=== PATIENT | female | born 1980 | race Caucasian/White ===

== ENCOUNTER 2023-06-30 09:59 | Emergency (ER) | payer OTHER, SELFPAY ==
--- NOTE | ~2023-06-30 | CT_ITS ---
EXAMINATION: CT abdomen pelvis w con DATE: 06/30/2023 15:27 INDICATION: Epigastric abdominal pain for 2 months. Nausea, vomiting, diarrhea TECHNIQUE: Computed tomography (CT) of the abdomen and pelvis was performed with 100 CC Omnipaque 350 intravenous contrast. Automated exposure control and iterative reconstruction technique were employe d. Exam dose: 270.69 mGy-cm total exam DLP. COMPARISON: None. FINDINGS: The lung bases are clear. Normal heart size. No pericardial or pleural effusion. Status post cholecystectomy. The liver, spleen, pancreas, and adrenal glands and kidneys are unremark able other than 13 mm left renal cyst. No bile duct or pancreatic duct dilatation. No urinary tract calculus or hydroureteronephrosis. Normal caliber of the abdominal aorta. No intraperitoneal or retroperitoneal or pelvic mass lesion or adenopathy or ascites. Retroverted uterus with IUD. There are nondilated fluid containing small bowel segments as well as some liquid stool is an air-flu id levels of the right colon suggesting enterocolitis. No bowel wall thickening, bowel obstruction, p neumoperitoneum or portal venous gas. Small fat-containing umbilical hernia. No suspicious osteolytic or osteoblastic lesions. IMPRESSION: Fluid containing small bowel segments as well as some liquid stool in colon air-fluid le vels, suggesting enterocolitis Status post cholecystectomy Retroverted uterus with IUD Reviewed, dictated and finalized at [facility]. Reviewed, dictated and finalized at [facility]. RECORDIST IMPRESSION: Fluid containing small bowel segments as well as some liquid stool in colon air-fluid levels, suggesting enterocolitis Status post cholecystectomy Retroverted uterus with IUD
[2023-06-30 10:09] VITALS: BP 129/70; PULSE 90; RESP 16; TEMP 36.4; O2SAT 100
--- NOTE | 2023-06-30 12:50 | ED.ABDPAIN ---
HPI - Abdominal Pain General Chief Complaint: Abdominal Pain <EZE Martines Last Filed: 06/30/23 12:57> Stated Complaint: abd pain <EZE Martines Last Filed: 06/30/23 12:57> Time Seen by Provider: 06/30/23 12:50 <EZE Martines Last Filed: 06/30/23 12:57> Focused HPI: Patient is a 43 y/o female who presents to the ED with c/o epigastric abdominal pain. Patient reports having intermittent pain in her epigastric region/upper abdomen for the past 2 months. Reports intermittent episodes of more severe pain, last occurring this morning. States at times, aggravated with eating/drinking, notes she ate fatty foods yesterday. Has not taken anything for the pain today. Has tried warm baths, gas-x, Imodium, yoga w/o improvement. Does not feel like acid reflux, takes omeprazole daily. Reports intermittent nausea, vomiting, diarrhea. States her stools often look yellow and greasy. Denies rectal bleeding, melena. Denies fevers. Denies urinary complaints. Denies Hx of IBD. GENERAL: Well-appearing, well-nourished, and in no acute distress. HEAD: Normocephalic, atraumatic. CHEST: Clear to auscultation. ?No respiratory distress. HEART: Regular rate and rhythm.? ABD: Mild TTP in epigastric region, no rebound NEURO: ?Alert and oriented x3. Patient screened in triage and initial orders placed.? ?Additional care and disposition to be based upon?diagnostic testing and treatment. <EZE Martines Last Filed: 06/30/23 12:57> Source: patient <EZE Martines Last Filed: 06/30/23 12:57> Mode of arrival: ambulatory <EZE Martines Last Filed: 06/30/23 12:57> Limitations: no limitations <EZE Martines Last Filed: 06/30/23 12:57> Related Data Allergies/Adverse Reactions: Allergies Allergy/AdvReac Type Severity Reaction Status Date / Time Penicillins Allergy Nausea and Verified 06/30/23 13:09 Vomiting prochlorperazine Allergy Muscle Verified 06/30/23 13:09 [From Compazine] Spasms <Vera Molina PA-C - Last Filed: 06/30/23 12:57> Review of Systems Review of Systems: All systems reviewed & are unremarkable except as noted in HPI and below <Alec Snowden MD - Last Filed: 06/30/23 19:56> Constitutional: Constitutional: Denies chills, Denies fatigue and Denies fever(s) <Alec Snowden MD - Last Filed: 06/30/23 19:56> ENT: Reports system reviewed and no additional complaints, except as documented <Alec Snowden MD - Last Filed: 06/30/23 19:56> Cardiovascular: Cardiovascular: Reports no additional cardiovascular complaints <Alec Snowden MD - Last Filed: 06/30/23 19:56> Respiratory: Respiratory: Reports no additional respiratory complaints <Alec Snowden MD - Last Filed: 06/30/23 19:56> Gastrointestinal: Gastrointestinal: Reports abdominal pain, Reports diarrhea, Denies nausea and Denies vomiting <Alec Snowden MD - Last Filed: 06/30/23 19:56> Musculoskeletal: Musculoskeletal: Reports no additional musculoskeletal complaints <Alec Snowden MD - Last Filed: 06/30/23 19:56> PMFSH Past Medical History Medical History: Medical History (Updated 06/30/23 @ 19:55 by Alec Snowden MD) Healthy female adult <Vera Molina PA-C - Last Filed: 06/30/23 12:57> Surgical History Surgical History: Surgical History (Updated 06/30/23 @ 19:55 by Alec Snowden MD) No history of previous surgery <Vera Molina PA-C - Last Filed: 06/30/23 12:57> Exam Narrative: GENERAL: Well-appearing, well-nourished, and in no acute distress. HEAD: Normocephalic, atraumatic. ENT: Nares clear, no rhinorrhea or epistaxis. Mucous membranes moist. NECK: Supple. CHEST: Clear to auscultation. No respiratory distress. HEART: Regular rate and rhythm. Normal peripheral pulses. ABDOMEN: Soft, mild tenderness left lower quadrant without guarding
[2023-06-30] MEDS: ACETAMINOPHEN 500 MG TABLET 1000 MG PO (13:09)
[2023-06-30] MEDS: BELLADONNA ALK/PHENOB ELIX 10 ML, MAG HYDROX/ALUMINUM HYD/SIMETH 30 ML, LIDOCAINE HCL 2... PO (13:10)
[2023-06-30 13:11] VITALS: BP 134/86; PULSE 80; RESP 14; TEMP 36.7; O2SAT 98
[2023-06-30 13:38] LABS: Basophils Absolute Auto 0.1 K/mm3 (0.0-0.1); Basophils Percent Auto 0.7 % (0.2-1.2); Eosinophils Absolute Auto 0.6 K/mm3 (0-0.3); Hematocrit 45.7 % (37.0-47.0); Hemoglobin 15.2 g/dL (12.0-15.0); Immature Granulocyte Absolute 0.03 K/mm3 (0.00-0.031); Immature Granulocyte Percent A 0.3 % (0-0.5); Lymphocytes Absolute Auto 1.77 K/mm3 (0.9-3.2); Lymphocytes Percent Auto 20.2 % (18.3-44.2); Mean Corpuscular HGB Conc 33.3 g/dl (32-36); Mean Corpuscular Hemoglobin 30.8 pg (26-34); Mean Corpuscular Volume 92.7 fl (80-100); Mean Platelet Volume 10.6 fl (7.4-10.4); Monocytes Absolute Auto 0.5 K/mm3 (0.1-0.6); Monocytes Percent Auto 5.1 % (2.6-8.5); Neutrophils Absolute Auto 5.9 K/mm3 (1.3-6.7); Neutrophils Percent Auto 66.7 % (45.5-73.1); Platelet Count Result 300 k/mm3 (150-375); Red Blood Count 4.93 M/mm3 (4.2-5.4); Red Cell Distribution Width 12.7 % (11.5-14.5); White Blood Count 8.8 K/mm3 (4.5-10.0)
[2023-06-30 13:52] LABS: Appearance Urine Cloudy (Clear); Bacteria Urine None Seen /hpf; Bilirubin Urine Negative (Negative); Blood Urine Negative (Negative); Color Urine Yellow (Yellow); Glucose Urine UA Negative (Negative); Ketones Urine Negative (Negative); Leukocyte Esterase Ur Negative LEU/UL (Negative); Need Manual Microscopic Reviewed; Nitrate Urine Negative (Negative); Non Pathogenic Casts 0-2; Protein Urine Negative (Negative); Specific Grav Ur 1.027 (1.001-1.035); Squamous Epithelial Cell Urine Few /hpf (Few); Urobilinogen Urine 0.2 mg/dL (<2.0); pH Urine 5.5 (5.0-9.0)
[2023-06-30 13:57] LABS: Add Urine Microscopic? YES
[2023-06-30 14:50] LABS: Alanine Aminotransferase 22 U/L (6-35); Albumin Level 4.4 g/dL (3.5-5.1); Alkaline Phosphatase 77 U/L (38-126); Anion Gap 6 mmol/L (8-16); Aspartate Amino Transferase 28 U/L (14-36); Bilirubin,Total 0.8 mg/dL (0.2-1.3); Blood Urea Nitrogen 14 mg/dL (7-17); Calcium 9.5 mg/dL (8.4-10.2); Carbon Dioxide 25 mmol/L (22-30); Chloride 105 mmol/L (98-107); Estimated CRCL calculation 56 ml/min; Estimated Glomerular Filt Rate 60; Glucose 88 mg/dL (65-110); Lipase 155 U/L (23-300); Potassium 3.9 mmol/L (3.4-5.0); Sodium 136 mmol/L (137-145)
== END 2023-06-30 17:26 | disposition home or self-care (01) ==
PROVIDERS: Physician Assistant; Emergency Provider Emergency Medicine
DX: K52.9 Noninfective gastroenteritis and colitis, unspecified (principal); Z90.49 Acquired absence of other specified parts of digestive tract; Z97.5 Presence of (intrauterine) contraceptive device; N85.4 Malposition of uterus
CPT/HCPCS: 36415; 74177; 80053; 81001; 81025; 83690; 85025; 87086; 99284; A9270; Q9967